=== PATIENT | male | born 1945 ===

== ENCOUNTER 2020-07-29 06:00 | Day surgery (SDC) | payer OTHER ==
[~2020-07-29 06:00] MED LIST: CIPRO750 MG PO; CLONAZEPAM1 MG PO; DOCUSATE SODIU100 MG PO; ENALAPRIL MALEAT5 MG; FORTAMET500 MG; METHYLPRED4 MG/DOSE- PO; NEURONTIN PO; PERCOCET 5/3251 TAB PO; SYNTHROID75 MCG; ULTRAM50 MG
[2020-07-29] MEDS ORDERED: ULTRACET PO (11:14)
== END 2020-07-29 16:47 | disposition home or self-care (01) ==
LOC: CIR.AMB 06:00
PROVIDERS: ATTEND Surgery
DX: D12.8 Benign neoplasm of rectum (principal); Z20.828 Contact with and (suspected) exposure to other viral communicable diseases